=== PATIENT | female | born 1975 | race Caucasian/White ===

== ENCOUNTER 2020-09-26 13:48 | Emergency (ER) | payer BC, SELFPAY ==
[2020-09-26 14:04] VITALS: BP 119/73; PULSE 83; RESP 15; TEMP 36.8; O2SAT 98; BMI 22.8
[2020-09-26 14:10] VITALS: BP 119/73; PULSE 83; RESP 15; TEMP 36.8; O2SAT 98; BMI 23.0
--- NOTE | 2020-09-26 14:29 | HMH.EDUTC ---
[facility] [place] Impression: Laceration of right thumb Qualifiers: Encounter type: initial encounter Damage to nail status: with damage Foreign body presence: without foreign body Qualified Code(s): S61.111A - Laceration without foreign body of right thumb with damage to nail, initial encounter Disposition: Home, Self-Care Condition on Discharge: Good Instructions: DI for Laceration Repair -- Simple Additional Instructions: Keep the wound clean and dry. Watch the for signs of infection, such as redness, swelling, drainage, fever. etc. Take tylenol or ibuprofen for pain. Follow up with your regular doctor. GO TO THE ER FOR ANY WORSENING SYMPTOMS OR CONCERNS. Prescriptions: Mupirocin [Bactroban 2% Ointment 22gm tube] 1 applicatio TP TID 7 Days #1 tube Transmission Status: Received by [facility] cephALEXin [Keflex 500mg Cap] 500 mg PO Q6H 10 Days #40 cap Transmission Status: Received by [facility] Referrals: Shahid Rae MD [Primary Care Provider] - Time of Disposition: 14:37 Medical Decision Making - Medical Records Medical records reviewed: No: I reviewed the patient's medical records. - Alfredo Inquiry Pt receiving controlled substance: No Vital Signs: 09/26/20 14:04 09/26/20 14:10 09/26/20 14:40 Temperature 98.3 F 98.3 F 98.3 F Temperature Source Oral Oral Oral Pulse Rate 83 Pulse Rate [Left Brachial] 83 83 Respiratory Rate 15 15 15 Blood Pressure 119/73 Blood Pressure [Left Arm] 119/73 119/73 Blood Pressure Mean [Left Arm] 88 88 Blood Pressure Source Automatic Cuff Blood Pressure Source [Left Arm] Automatic Cuff Blood Pressure Position Sitting Blood Pressure Position [Left Arm] Sitting 02 Sat by Pulse Oximetry 98 98 Oxygen Delivery Method Room Air Room Air Room Air [facility] [place] - General Stated complaint: rt hand lac Ao 09/26/20 Time Seen by Provider: 09/26/20 14:29 Mode of Arrival: Ambulatory Source of Information: Patient Limitations: No Limitations Description of Symptoms (Recalled from Triage Doc. by RN): Reports she was trying to open a package with a knife and it slipped hitting her right thumb/nailbed. No longer bleeding. HEENT Symptoms (Recalled from RN notes): No Resp Symptoms (Recalled from RN notes): No Skin Symptoms (Recalled from RN notes): No MS Symptoms (Recalled from RN notes): No Functional Status (Recalled from RN notes): wnl - History of Present Illness Provider Complaint: She was wrapping presents earlier today when she slipped with a knife and cut her right thumb. She states that the cut goes across her thumb nail. Her tetanus immunization is up to date. - Related Data Previous Rx's Medication Instructions Recorded azithromycin 250 mg tablet 250 mg PO QDAY 5 Days #6 tab 08/20/19 Mupirocin [Bactroban 2% Ointment 1 applicatio TP TID 7 Days #1 tube 09/26/20 22gm tube] cephALEXin [Keflex 500mg Cap] 500 mg PO Q6H 10 Days #40 cap 09/26/20 Allergies Allergy/AdvReac Type Severity Reaction Status Date / Time Penicillins Allergy Verified 08/20/19 10:38 From [facility] Allergy Unknown I-ITCHING Uncoded 10/20/18 11:30 - Worker's Comp Is this a Worker's Comp case?: No [facility] History - Hepatitis A Screen Drug use history?: No High risk sexual behaviors?: No History of sexually transmitted infection?: No Currently employed?: No Childcare worker?: No Do you have indoor plumbing?: Yes Do you have electricity?: Yes Attestation statement:: This patient has been screened for Hepatitis A risk factors. I have reviewed the patient's past medical history: Yes Medical History: Denies:: Diabetes Mellitus Type 1, Diabetes Mellitus Type 2 Laterality Cases: Right: Lumpectomy Other Surgeries: Yes: Cholecystectomy, Hysterectomy-Partial Comment: Breast Implants - Social History Smoking Status: Current every day smoker Tobacco Type: cigarettes # Packs/Day (cigarettes): 1 Alcohol Intake: never Occupat
[2020-09-26 14:40] VITALS: BP 119/73; PULSE 83; RESP 15; TEMP 36.8; O2SAT 98
== END 2020-09-26 14:41 | disposition home or self-care (01) ==
PROVIDERS: Emergency Provider Nurse Practitioner Family; PCP Family Medicine
DX: S61.111A Laceration without foreign body of right thumb with damage to nail, initial encounter (principal); W26.0XXA Contact with knife, initial encounter; Y92.019 Unspecified place in single-family (private) house as the place of occurrence of the external cause; F17.210 Nicotine dependence, cigarettes, uncomplicated; Z88.0 Allergy status to penicillin; Z88.5 Allergy status to narcotic agent
CPT/HCPCS: 99201

== ENCOUNTER → 2021-10-19 16:49 | Outpatient (CLI) | payer BC, SELFPAY | PROVIDERS: Visit Provider Nurse Practitioner | DX: Z20.822 Contact with and (suspected) exposure to COVID-19 (principal) | CPT/HCPCS: C9803; U0003; U0005 ==

== ENCOUNTER → 2022-08-04 07:18 | Outpatient (CLI) | payer BC, SELFPAY ==
[2022-08-04 07:30] LABS: MANUAL DIFFERENTIAL MANUAL DIFFERENTIAL (MANUAL DIFF)
--- NOTE | 2022-08-04 07:41 | XR_ITS ---
FINAL REPORT CLINICAL HISTORY: Unexplained cough FINDINGS: Two views of the chest were obtained. The heart size and pulmonary vascularity are within normal limits. The mediastinum is normal. No acute pulmonary abnormality is identified. There is no pneumothorax. The bony thorax is intact. IMPRESSION: No active cardiopulmonary disease. Reviewed, Interpreted and Dictated by Anthony Gavin III, MD Transcribed by Nilam Salomon Authenticated and [facility]
[2022-08-04 08:14] LABS: Basophils # 0.2 K/mm3 (0-0.2); Basophils % 2.6 % (0.1-2.0); Eosinophils # 0.3 K/mm3 (0.0-0.4); Eosinophils % 3.2 % (0.1-12.0); Hematocrit 48.8 % (37.0-47.0); Hemoglobin 15.8 g/dL (12.2-16.2); Lymphocytes % 38.3 % (10-50); Mean Corpuscular HGB Conc 32.3 g/dL (31.8-35.4); Mean Corpuscular Volume 92.8 fl (81-99); Mean Platelet Volume 8.6 fl (7.4-10.4); Monocytes # 0.3 K/mm3 (0.1-1.0); Monocytes % 4.4 % (1.7-9.3); Neutrophils % 51.5 % (37.0-80.0); Platelet Count 324 K/mm3 (142-424); Red Blood Count 5.26 M/mm3 (4.20-5.40); Red Cell Distribution Width 14.8 % (11.5-17.5); White Blood Count 7.7 K/mm3 (4.8-10.8)
[2022-08-04 08:27] LABS: Chloride 101 mmol/L (98-107); Potassium 4.3 mmoL/L (3.5-5.1); Sodium 137 mmol/L (136-145)
[2022-08-04 08:30] LABS: Alanine Aminotransferase 16 U/L (12-78); Albumin Level 4.2 g/dl (3.5-5.0); Albumin/Globulin Ratio 1.3 (1.1-1.8); Alkaline Phosphatase 126 U/L (38-126); Anion Gap 13.3 mEq/L (5-15); Aspartate Amino Transferase 26 U/L (14-36); Bilirubin,Total 0.4 mg/dl (0.2-1.3); Blood Urea Nitrogen 6 mg/dl (7-17); Carbon Dioxide 27 mmol/L (22.0-30.0); Cholesterol 246 mg/dl (140-200); Estimated Glomerular Filt Rate 77 ml/min (>60); GFR (African American) 93 ML/MIN (>60); Globulin 3.2 g/dL (1.3-3.2); Total Protein,Serum 7.4 g/dl (6.3-8.2); Triglycerides 83 mg/dl (30-150); VLDL Cholesterol 17 mg/dL (0-40)
[2022-08-04 08:31] LABS: Calcium 9.4 mg/dl (8.4-10.2); Chol/HDL Ratio 3.3 (1-3.5); Glucose 91 mg/dl (74-100); HDL Cholesterol 74 mg/dl (40-60)
[2022-08-04 08:42] LABS: Direct LDL Cholesterol 130.63 mg/dL (100-129)
[2022-08-04 09:01] LABS: Thyroid Stimulating Hormone 3.35 uIU/mL (0.465-4.68)
[2022-08-04 09:55] LABS: Lymphocytes % 42 % (10-50); Monocytes % 6 % (2-9); Neutrophils % 52 % (42-76); Platelet Estimate Normal; RBC Morphology Normal; Total Cells Counted 100
[2022-08-05 08:15] LABS: FSH 42.4 mIU/mL (.); LH 28.9 mIU/mL (.)
== END ==
PROVIDERS: PCP Family Medicine; Visit Provider Family Medicine
DX: Z00.01 Encounter for general adult medical examination with abnormal findings (principal); R05.9 Cough, unspecified; F32.A Depression, unspecified
CPT/HCPCS: 36415; 71046; 80053; 80061; 83001; 83002; 84443; 85007; 85014; 85018; 85048; 85049; 87086; 88305; 88312

== ENCOUNTER 2022-08-09 10:01 | Day surgery (SDC) | payer BC, SELFPAY ==
[2022-07-24 14:17] VITALS: BMI 21.0
[2022-08-09 11:04] VITALS: BP 124/79; PULSE 83; RESP 18; TEMP 36.4; O2SAT 99
--- NOTE | 2022-08-09 11:23 | EXP.ANES.CKL ---
[facility] Medical History History of rectal fissure Laceration of right thumb Strep throat Urinary tract infection Surgical History History of hysterectomy Hx of breast implants, bilateral Hx of cholecystectomy Family History Father Heart attack Hypertension Prostate cancer Mother Hypertension Macular degeneration Sister Thyroid disorder Grandmother Ovarian cancer Colon cancer Social History (Updated 08/09/22 @ 11:14 by Faith Francis RN) Smoking Status: Current every day smoker tobacco type: cigarettes packs per day: 1 years smoked: 20 quit status: considering quitting alcohol intake: former substance use type: denies use current occupational status: employed and other details: self employed Travel in the last 8 weeks: Inside the [facility] household members: spouse housing: house marital status: number of children: 0 education level: high school current occupational exposures/hazards: No caffeine: Yes special sandra needs: No agree to transfusion: No do you feel safe at home: Yes victim of physical abuse: No victim of emotional abuse: No victim of sexual abuse: No would you like helpful sources: No [facility] Anesthesia Checklist Patient Identification Patient Identification: Arm Band Structural Data Admitted From: Home Planned Operative Procedure/s: EGD/colonoscopy Consent for Planned Operative Procedure(s) Verified: Yes Verified Documents: Surgical Consent and History and Physical NPO Status Verified Time NPO: 00:00 Additional verifications Anesthesia Reactions: No Airway Assessment C-Spine Mobility Assessed: Yes TMJ Mobility Assessed: Yes Dentition: Good Dentition Neurological Assessment Level of Consciousness: Awake and Alert Anesthesia Plan Anesthesia Risk discussed: Yes Anesthesia Plan: Verified ASA Class: I Anesthesia Type: MAC
[2022-08-09 12:02] VITALS: BP 100/67; PULSE 81; RESP 18; TEMP 36.1; O2SAT 98
--- NOTE | 2022-08-09 12:03 | HMH.SCOPE ---
Procedure: Date: 08/09/22 Patient Date of :: 1975 Procedure Performed:: EGD Indications:: Chronic GERD Performing Provider:: Chay Adam MD Referring Provider:: Jessie Morris Sedation:: See RN records Procedure:: The gastroscope was gently passed through the incisoral orifice into the oral cavity and under direct visualization the esophagus was intubated. The endoscope was passed down the esophagus, through the stomach, and into the duodenum. Color, texture, mucosa, and anatomy of the esophagus, stomach, and duodenum were carefully examined with the scope. Findings:: Oropharynx: normal Esophagus: Tongue of salmon colored mucosa 1 cm in size. Biopsies obtained EG Junction: Irregular z-line measured at 37 cm Cardia: normal Fundus: normal Body: Mild to moderate gastritis. 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
--- NOTE | 2022-08-09 12:06 | HMH.SCOPE ---
Procedure: Date: 08/09/22 Patient Date of :: 1975 Procedure Performed:: Colonoscopy Indications:: Screening colonoscopy Performing Provider:: Chay Adam MD Referring Provider:: Jessie Morris Sedation:: See RN records Procedure:: After placing the patient in the left lateral decubitus position, the colonoscopy was gently inserted into the rectum and under direct visualization advanced to the cecum which was identified by transillumination in the right lower quadrant, identification of the ileocecal valve, appendiceal orifice, and cecal strap. Color, texture, mucosa, and anatomy of the colon were carefully examined with the scope. Findings:: Anal canal: normal Rectum: Internal hemorrhoids Sigmoid colon: normal without polyps or inflammatory changes Descending colon: normal without polyps or inflammatory changes Splenic flexure: normal Transverse colon: normal without polyps or inflammatory changes Hepatic flexure: normal Ascending colon: normal without polyps or inflammatory changes Cecum: normal Terminal ileum: not visualized Impression: Normal appearing colon. Quality of bowel preparation was good. Recommendations:: Repeat colonoscopy for screening in 10 years or sooner if clinically indicated Complications:: none Estimated blood obtained (mL): 0
[2022-08-09 12:12] VITALS: BP 120/84; PULSE 75; RESP 18; O2SAT 100
[2022-08-09 12:22] VITALS: BP 112/79; PULSE 75; RESP 18; O2SAT 100
[2022-08-09 12:53] VITALS: BP 114/84; PULSE 79; RESP 18; O2SAT 98
== END 2022-08-09 12:40 | disposition home or self-care (01) ==
PROVIDERS: PCP Family Medicine; Visit Provider Internal Medicine
PROC: 0DJ08ZZ Inspection of Upper Intestinal Tract, Via Natural or Artificial Opening Endoscopic (ICD-10-PCS; CPT 43235; principal; 2022-08-09 11:30)
DX: Z12.11 Encounter for screening for malignant neoplasm of colon (principal); K21.00 Gastro-esophageal reflux disease with esophagitis, without bleeding; K64.8 Other hemorrhoids; Z72.0 Tobacco use; Z79.899 Other long term (current) drug therapy
CPT/HCPCS: 43239; 45378; 88305; 88312

== ENCOUNTER 2022-09-05 23:38 | Emergency (ER) | payer BC, SELFPAY ==
[2022-09-06 00:09] VITALS: BP 109/67; PULSE 89; RESP 16; TEMP 36.7; O2SAT 99; BMI 21.0
--- NOTE | 2022-09-06 00:26 | CT_ITS ---
PROCEDURE INFORMATION: Exam: CT Abdomen And Pelvis With Contrast Exam date and time: 09/06/2022 12:52 AM Age: 47 years old Clinical indication: Abdominal pain; Localized; Patient HX: Severe left sided abd pain; Additional info: Luq abd pain TECHNIQUE: Imaging protocol: Computed tomography of the abdomen and pelvis with contrast. Radiation optimization: All CT scans at this facility use at least one of these dose optimization techniques: automated exposure control; mA and/or kV adjustment per patient size (includes targeted exams where dose is matched to clinical indication); or iterative reconstruction. Contrast material: ISOVUE; Contrast volume: 75 ml; Contrast route: IV; COMPARISON: RUQ US RUQ-(ABD LTD)1ORGAN/QUAD/FU 09/05/2016 9:05 AM FINDINGS: Lungs: Few calcified pulmonary granulomas. Bibasilar probable atelectasis. Liver: No suspicious mass. Gallbladder and bile ducts: Cholecystectomy. Pancreas: No ductal dilation. No peripancreatic inflammatory changes. Spleen: Unremarkable. Adrenal glands: No mass. Kidneys and ureters: No hydronephrosis. Stomach and bowel: Several scattered relatively small areas of high attenuation material in the colon (including transverse colon and sigmoid), nonspecific, possibly residual oral contrast. Appendix: No evidence of acute appendicitis. Intraperitoneal space: No ascites. Vasculature: atherosclerotic calcifications. Lymph nodes: No enlarged lymph nodes. Urinary bladder: Unremarkable as visualized. Reproductive: The uterus is present. Bones/joints: No suspicious osseous lesion. No acute fracture. Scattered degenerative changes. Soft tissues: No suspicious mass. IMPRESSION: 1. Several scattered relatively small areas of high attenuation material in the colon (including transverse colon and sigmoid), nonspecific, possibly residual oral contrast. However, contrast extravasation due to gastrointestinal hemorrhage may have a similar appearance. Consider further evaluation with nuclear medicine bleeding scan of clinically indicated. 2. No evidence of acute appendicitis.
[2022-09-06 00:33] LABS: Basophils # 0.3 K/mm3 (0-0.2); Basophils % 2.3 % (0.1-2.0); Eosinophils # 0.4 K/mm3 (0.0-0.4); Eosinophils % 3.2 % (0.1-12.0); Hematocrit 49.8 % (37.0-47.0); Hemoglobin 16.3 g/dL (12.2-16.2); Lymphocytes # 3.7 K/mm3 (0.7-4.5); Lymphocytes % 28.6 % (10-50); Mean Corpuscular HGB Conc 32.7 g/dL (31.8-35.4); Mean Corpuscular Volume 91.9 fl (81-99); Mean Platelet Volume 8.9 fl (7.4-10.4); Monocytes # 0.5 K/mm3 (0.1-1.0); Monocytes % 3.6 % (1.7-9.3); Neutrophils # 8.1 K/mm3 (1.8-7.8); Neutrophils % 62.3 % (37.0-80.0); Platelet Count 342 K/mm3 (142-424); Red Blood Count 5.42 M/mm3 (4.20-5.40); Red Cell Distribution Width 14.4 % (11.5-17.5); White Blood Count 13.1 K/mm3 (4.8-10.8)
[2022-09-06 00:37] LABS: Chloride 97 mmol/L (98-107); Potassium 3.8 mmoL/L (3.5-5.1); Sodium 137 mmol/L (136-145)
[2022-09-06 00:39] LABS: Amylase 118 U/L (30-110); Blood Urea Nitrogen 8 mg/dl (7-17)
[2022-09-06 00:40] LABS: Alanine Aminotransferase 24 U/L (12-78); Albumin Level 4.7 g/dl (3.5-5.0); Albumin/Globulin Ratio 1.4 (1.1-1.8); Alkaline Phosphatase 128 U/L (38-126); Anion Gap 20.8 mEq/L (5-15); Aspartate Amino Transferase 37 U/L (14-36); Bilirubin,Total 0.3 mg/dl (0.2-1.3); Calcium 10.1 mg/dl (8.4-10.2); Carbon Dioxide 23 mmol/L (22.0-30.0); Creatinine Clearance Estimated 72 mL/min (50-200); Estimated Glomerular Filt Rate 77 ml/min (>60); GFR (African American) 93 ML/MIN (>60); Globulin 3.4 g/dL (1.3-3.2); Glucose 93 mg/dl (74-100); Lipase 41 U/L (23-300); Total Protein,Serum 8.1 g/dl (6.3-8.2)
--- NOTE | 2022-09-06 01:01 | PC.NURSE ---
Pt gone to RAD
--- NOTE | 2022-09-06 01:30 | PC.NURSE ---
DR Fontaine s/w [facility]
[2022-09-06 01:31] VITALS: BP 103/75; PULSE 81; O2SAT 99
[2022-09-06 01:31] LABS: Microscopic, Urine URINE MICROSCOPIC (MICROSCOPIC)
[2022-09-06 01:32] LABS: Appearance,Urine CLEAR (Clear); Bilirubin,Urine Negative (Negative); Blood, Urine Negative (Negative); Color,Urine YELLOW (Yellow); Glucose,Urine (UA) Negative (Negative); Ketones,Urine Negative (Negative); Leukocyte Esterase,Urine Negative (Negative); Nitrate,Urine Negative (Negative); PH,Urine 6.5 (5.0-8.5); Protein,Urine Negative (Negative); Specific Gravity, Urine <= 1.005 (1.005-1.030); Urobilinogen,Urine 0.2 EU/dl (0.2)
--- NOTE | 2022-09-06 01:36 | PC.NURSE ---
Dr. Fontaine at
--- NOTE | 2022-09-06 01:39 | HMH.EDABDPAI ---
Discharge Plan Disposition Patient Disposition: Home, Self-Care Chief Complaint: Abdominal Pain Prescriptions Prescriptions: No Action bupropion HCl [Wellbutrin XL] 300 mg tablet extended release 24 hr 300 mg PO DAILY Qty: 30 1RF pantoprazole 40 mg tablet,delayed release (DR/EC) 40 mg PO DAILY Qty: 30 2RF famotidine 40 mg tablet 40 mg PO DAILY Referrals Follow up/Referrals: Jessie Morris DO [Primary Care Provider] - See instructions Clinical Impressions Clinical Impression: Abdominal pain Instructions Patient Instructions: DI for Acute Abdominal Pain, Acute Abdominal Pain Discharge ED Provider: Tenzin Fontaine Abdominal Pain HPI General Chief Complaint: Abdominal Pain Stated Complaint: Left side abdominal pain Time Seen by Provider: 09/06/22 01:39 Mode of Arrival: Ambulatory Source of Information: Patient and Medical Record Limitations: Altered Mental Status Description of Symptoms (Recalled from ER Triage Doc. by RN): Pt reports walking throught the house aprox. an hour prior to arrival when she had a sudden onset of LUQ abdominal pain that she states brought me to my knees. She endorses associated nausea and cold sweats . She denies fever, vomiting, changes in bowel or bladder. She says pain is sharp and constant but less intense when first started. She says pain is slightly alleviated by putting pressure on LUQ. History of Present Illness HPI narrative: acute upper abd pain tonight with sweating with no predromal sx - no blood in stool - had colonoscopy about 10 days ago MD complaint: abdominal pain Onset (ago): hour(s) Consistency: intermittent Location: LUQ Severity: moderate Quality: sharp Radiation: LUQ Related Data Home Medications Medication Instructions Recorded Confirmed famotidine 40 mg tablet 40 mg PO DAILY GERD 07/24/22 07/24/22 Previous Rx's Medication Instructions Recorded bupropion HCl 300 mg 24 hr tablet, 300 mg PO DAILY #30 tabs 08/16/22 extended release (Wellbutrin XL) pantoprazole 40 mg tablet,delayed 40 mg PO DAILY #30 tabs 09/04/22 release Allergies Allergy/AdvReac Type Severity Reaction Status Date / Time Penicillins AdvReac Verified 08/16/22 10:34 From [facility] Allergy Unknown I-ITCHING Uncoded 08/16/22 10:34 PFSH [facility] Medical History History of rectal fissure Laceration of right thumb Strep throat Urinary tract infection Surgical History History of hysterectomy has one ovary Due to benign reason Hx of breast implants, bilateral Hx of cholecystectomy Family History Father Heart attack Hypertension Prostate cancer Mother Hypertension Macular degeneration Sister Thyroid disorder Bradley's Grandmother Ovarian cancer Colon cancer Social History Smoking Status: Current every day smoker tobacco type: cigarettes packs per day: 1 years smoked: 20 quit status: considering quitting alcohol intake: former substance use type: denies use current occupational status: employed and other details: self employed Travel in the last 8 weeks: Inside the [place] household members: spouse housing: house marital status: number of children: 0 education level: high school current occupational exposures/hazards: No caffeine: Yes special sandra needs: No agree to transfusion: No do you feel safe at home: Yes victim of physical abuse: No victim of emotional abuse: No victim of sexual abuse: No would you like helpful sources: No ROS Obtained: Yes All systems reviewed & no additional complaints except as documented Physical Exam General General appearance: alert Head Head exam: normocephalic Eye Eye exam: Present PERRL and EOMI ENT ENT exam:
[2022-09-06 01:44] LABS: Bacteria,Urine Trace /lpf; WBC,Urine Occasional #/hpf (0-3)
[2022-09-06 02:00] VITALS: BP 113/78; PULSE 75; O2SAT 99
[2022-09-06 02:26] VITALS: BP 115/80; PULSE 78; RESP 18; TEMP 36.6; O2SAT 99
== END 2022-09-06 02:34 | disposition home or self-care (01) ==
PROVIDERS: Emergency Provider Emergency Medicine; PCP Family Medicine
DX: R10.32 Left lower quadrant pain (principal); R61 Generalized hyperhidrosis; R11.0 Nausea; F17.210 Nicotine dependence, cigarettes, uncomplicated; Z88.0 Allergy status to penicillin; Z88.5 Allergy status to narcotic agent; Z88.6 Allergy status to analgesic agent; Z82.49 Family history of ischemic heart disease and other diseases of the circulatory system; Z82.1 Family history of blindness and visual loss; Z80.42 Family history of malignant neoplasm of prostate; Z80.41 Family history of malignant neoplasm of ovary; Z80.0 Family history of malignant neoplasm of digestive organs
CPT/HCPCS: 74177; 80053; 81001; 82150; 83690; 85025; 96361; 96374; 96375; 99285; J2405; Q9967

== ENCOUNTER → 2023-08-01 09:24 | Outpatient (CLI) | payer BC, SELFPAY | PROVIDERS: PCP Nurse Practitioner Family; Visit Provider Nurse Practitioner Family | DX: R30.0 Dysuria (principal); B96.29 Other Escherichia coli [E. coli] as the cause of diseases classified elsewhere | CPT/HCPCS: 87086 ==

== ENCOUNTER 2023-10-09 10:40 | Outpatient (CLI) | payer BC, SELFPAY ==
[2023-10-09 17:59] LABS: Coronavirus 19, PCR Not Detected (NotDetected); Influenza A, PCR Not Detected (NotDetected); Influenza B, PCR Not Detected (NotDetected)
== END 2023-10-09 23:59 ==
LOC: LAB.DROPOF 10-10 10:40
PROVIDERS: PCP Student in an Organized Health Care Education/Training Program; Visit Provider Student in an Organized Health Care Education/Training Program
DX: R05.9 Cough, unspecified (principal)
CPT/HCPCS: 87636

== ENCOUNTER 2024-02-01 15:00 | Outpatient (CLI) | payer BC, SELFPAY ==
[2024-02-01 15:43] LABS: Erythrocyte Sedimentation Rate 5 mm/hr (0-20)
[2024-02-01 15:51] LABS: Alanine Aminotransferase 13 U/L (12-78); Albumin Level 3.9 g/dl (3.5-5.0); Albumin/Globulin Ratio 1.4 (1.1-1.8); Alkaline Phosphatase 111 U/L (38-126); Anion Gap 8.3 mEq/L (5-15); Aspartate Amino Transferase 23 U/L (14-36); Bilirubin,Total 0.5 mg/dl (0.2-1.3); Blood Urea Nitrogen 14 mg/dl (7-17); Calcium 9.2 mg/dl (8.4-10.2); Carbon Dioxide 25 mmol/L (22.0-30.0); Chloride 110 mmol/L (98-107); Estimated Glomerular Filt Rate 90 ml/min (>60); GFR (African American) 109 ML/MIN (>60); Globulin 2.7 g/dL (1.3-3.2); Glucose 73 mg/dl (74-100); Potassium 4.3 mmoL/L (3.5-5.1); Sodium 139 mmol/L (136-145); Total Protein,Serum 6.6 g/dl (6.3-8.2); Uric Acid 3.7 mg/dl (2.5-6.2)
[2024-02-01 16:06] LABS: T4 (Thyroxine) 6.3 ug/dl (5.53-11.0)
[2024-02-01 16:19] LABS: Thyroid Stimulating Hormone 4.07 uIU/mL (0.465-4.68)
[2024-02-01 16:39] LABS: Vitamin B12 611 pg/mL (239-931)
[2024-02-01 17:42] LABS: Ferritin 21.1 ng/ml (6.24-137)
[2024-02-02 08:23] LABS: Thyroid Peroxidase Antibodies 75 IU/mL (0-34); Triiodothyronine (T3) Free 2.4 pg/mL (2.0-4.4)
[2024-02-02 10:03] LABS: RA Latex Turbid. <10.0 IU/mL (<14.0)
[2024-02-04 16:16] LABS: Antinuclear Antibodies, IFA Negative (.)
[2024-02-05 09:12] LABS: Thyroglobulin Level <1.0 IU/mL (0.0-0.9)
[2024-02-06 01:14] LABS: Magnesium,RBC 5.5 mg/dL (3.7-7.0)
[2024-02-08 09:02] LABS: Antinuclear Antibodies (ANA) Negative
== END 2024-02-01 23:59 | disposition home or self-care (01) ==
LOC: LAB.DROPOF 15:07
PROVIDERS: PCP Nurse Practitioner Family; Visit Provider Nurse Practitioner Family
DX: E04.1 Nontoxic single thyroid nodule (principal); M25.50 Pain in unspecified joint; D64.9 Anemia, unspecified; R20.2 Paresthesia of skin; R63.4 Abnormal weight loss; Z68.1 Body mass index [BMI] 19.9 or less, adult
CPT/HCPCS: 36415; 80053; 82533; 82607; 82728; 83735; 84436; 84443; 84481; 84550; 85651; 86038; 86225; 86235; 86376; 86431; 86800

== ENCOUNTER 2024-02-06 12:34 | Outpatient (CLI) | payer BC, SELFPAY ==
--- NOTE | 2024-02-06 12:34 | US_ITS ---
FINAL REPORT TECHNIQUE: Real-time grayscale and color ultrasound of the thyroid was performed. CLINICAL HISTORY: thyroid nodule COMPARISON: None FINDINGS: The thyroid is diffusely heterogeneous which may be seen with goiter or thyroiditis. There are no suspicious nodules. There is a hypoechoic nodule posterior to the left thyroid gland measuring 5 mm which may represent parathyroid gland. IMPRESSION: Heterogeneous thyroid may represent chronic thyroiditis without suspicious thyroid lesions. Possible parathyroid gland enlargement posterior to the left thyroid. Reviewed, Interpreted and Dictated by Olaf Howard MD Transcribed by Alida Stover Authenticated and [facility]
== END 2024-02-06 23:59 | disposition home or self-care (01) ==
LOC: RAD 12:34
PROVIDERS: PCP Nurse Practitioner Family; Visit Provider Nurse Practitioner Family
DX: E04.1 Nontoxic single thyroid nodule (principal)
CPT/HCPCS: 76536

== ENCOUNTER 2024-02-13 13:01 | Outpatient (CLI) | payer BC, SELFPAY ==
[2024-02-13 13:47] LABS: Chol/HDL Ratio 2.6 (1-3.5); Cholesterol 205 mg/dl (140-200); HDL Cholesterol 78 mg/dl (40-60); Triglycerides 75 mg/dl (30-150); VLDL Cholesterol 15 mg/dL (0-40)
[2024-02-13 13:59] LABS: Direct LDL Cholesterol 109.48 mg/dL (100-129); Intact Parathyroid Hormone 52.8 pg/mL (7.5-53.5)
[2024-02-13 14:10] LABS: 25-OH Vitamin D, Total 22.3 ng/mL (30-100)
== END 2024-02-13 23:59 | disposition home or self-care (01) ==
LOC: LAB.DROPOF 13:01
PROVIDERS: PCP Nurse Practitioner Family; Visit Provider Nurse Practitioner Family
DX: E21.5 Disorder of parathyroid gland, unspecified (principal); E55.9 Vitamin D deficiency, unspecified; Z13.220 Encounter for screening for lipoid disorders; Z68.1 Body mass index [BMI] 19.9 or less, adult
CPT/HCPCS: 80061; 82306; 82330; 83970

== ENCOUNTER 2024-02-22 07:32 | Outpatient (CLI) | payer BC, SELFPAY ==
--- NOTE | 2024-02-22 07:32 | MR_ITS ---
FINAL REPORT CLINICAL HISTORY: generalized tingling. HEADACHE FINDINGS: Multiplanar MR imaging of the brain was performed without contrast. There is no evidence of intracranial hemorrhage or mass. The ventricular size is normal. There is no evidence of shift of the midline structures. No abnormal extra-axial fluid collection is identified. The posterior fossa and brainstem have an unremarkable appearance. No area of abnormal restricted diffusion is identified. Normal major vessel vascular flow voids are seen. There is mucosal thickening in multiple sinuses. IMPRESSION: Unremarkable brain with no acute intracranial abnormality. Reviewed, Interpreted and Dictated by Anthony Gavin III, MD Transcribed by Danita Charlton Authenticated and [facility]
== END 2024-02-22 23:59 | disposition home or self-care (01) ==
LOC: RAD 07:32
PROVIDERS: PCP Nurse Practitioner Family; Visit Provider Nurse Practitioner Family
DX: R20.2 Paresthesia of skin (principal)
CPT/HCPCS: 70551

== ENCOUNTER 2024-03-05 08:11 | Outpatient (CLI) | payer BC, SELFPAY ==
--- NOTE | 2024-03-05 08:12 | NM_ITS ---
FINAL REPORT CLINICAL HISTORY: enlarged parathyroid per thyroid US COMPARISON: None FINDINGS: PARATHYROID SCAN The patient received a dose of 21.5 millicuries of technetium 99m sestamibi. Images over the neck were obtained initially and after a two-hour delay. No focal persistent activity is identified to suggest a parathyroid adenoma. IMPRESSION: No evidence of a parathyroid adenoma. Reviewed, Interpreted and Dictated by Román Carpenter MD Transcribed by Alida Stover Authenticated and . [facility]
== END 2024-03-05 23:59 | disposition home or self-care (01) ==
LOC: RAD 08:12
PROVIDERS: PCP Nurse Practitioner Family; Visit Provider Nurse Practitioner Family
DX: E21.5 Disorder of parathyroid gland, unspecified (principal)
CPT/HCPCS: 78070

== ENCOUNTER 2024-10-21 09:23 | Outpatient (CLI) | payer BC, SELFPAY ==
[2024-10-21 09:02] LABS: Microscopic, Urine URINE MICROSCOPIC (MICROSCOPIC)
[2024-10-21 09:13] LABS: Basophils # 0.1 K/mm3 (0-0.2); Basophils % 1.8 % (0.1-2.0); Eosinophils # 0.8 K/mm3 (0.0-0.4); Eosinophils % 11.3 % (0.1-12.0); Hematocrit 40.1 % (37.0-47.0); Hemoglobin 13.8 g/dL (12.2-16.2); Lymphocytes # 2.8 K/mm3 (0.7-4.5); Lymphocytes % 38.8 % (10-50); Mean Corpuscular HGB Conc 34.4 g/dL (31.8-35.4); Mean Corpuscular Volume 87.2 fl (81-99); Mean Platelet Volume 11.2 fl (7.4-10.4); Monocytes # 0.4 K/mm3 (0.1-1.0); Platelet Count 233 K/mm3 (142-424); White Blood Count 7.1 K/mm3 (4.8-10.8)
[2024-10-21 09:49] LABS: Hemoglobin A1C 5.3 % (4.0-6.0)
[2024-10-21 10:06] LABS: Erythrocyte Sedimentation Rate 4 mm/hr (0-20)
[2024-10-21 10:26] LABS: Appearance,Urine CLEAR (Clear); Bilirubin,Urine Negative (Negative); Blood, Urine Negative (Negative); Color,Urine YELLOW (Yellow); Glucose,Urine (UA) Negative (Negative); Ketones,Urine Negative (Negative); Leukocyte Esterase,Urine Negative (Negative); Nitrate,Urine Negative (Negative); Protein,Urine Negative (Negative); Specific Gravity, Urine 1.015 (1.005-1.030); Urobilinogen,Urine 0.2 EU/dl (0.2)
[2024-10-21 10:37] LABS: HIV Combo NEGATIVE (Negative)
[2024-10-21 10:39] LABS: Alanine Aminotransferase 23 U/L (12-78); Albumin Level 4.4 g/dl (3.5-5.0); Albumin/Globulin Ratio 1.8 (1.1-1.8); Alkaline Phosphatase 93 U/L (38-126); Aspartate Amino Transferase 36 U/L (14-36); Bilirubin,Total 0.4 mg/dl (0.2-1.3); Blood Urea Nitrogen 7 mg/dl (7-17); Calcium 9.8 mg/dl (8.4-10.2); Carbon Dioxide 33 mmol/L (22.0-30.0); Chloride 102 mmol/L (98-107); Cholesterol 213 mg/dl (140-200); Estimated Glomerular Filt Rate 59 ml/min (>60); GFR (African American) 72 ML/MIN (>60); Globulin 2.5 g/dL (1.3-3.2); Glucose 93 mg/dl (74-100); Phosphorous 3.9 mg/dl (2.5-4.5); Sodium 139 mmol/L (136-145); Total Protein,Serum 6.9 g/dl (6.3-8.2); Triglycerides 59 mg/dl (30-150); VLDL Cholesterol 12 mg/dL (0-40)
[2024-10-21 10:41] LABS: Magnesium 2.2 mg/dl (1.6-2.3)
[2024-10-21 10:45] LABS: Hepatitis C Ab Qual. W/ RFX NEGATIVE (Negative)
[2024-10-21 10:50] LABS: Direct LDL Cholesterol 105.53 mg/dL (100-129)
[2024-10-21 10:55] LABS: C-Reactive Protein 0.5 mg/L (0-4)
[2024-10-21 11:08] LABS: Thyroid Stimulating Hormone 5.73 uIU/mL (0.465-4.68)
[2024-10-21 11:27] LABS: Vitamin B12 859 pg/mL (239-931)
[2024-10-21 11:28] LABS: Bacteria,Urine 2+ /lpf; RBC,Urine Occasional #/hpf (0-3); WBC,Urine Occasional #/hpf (0-3)
[2024-10-21 14:06] LABS: Anion Gap 8.3 mEq/L (5-15); Potassium 4.3 mmoL/L (3.5-5.1)
[2024-10-21 14:09] LABS: Chol/HDL Ratio 2.5 (1-3.5); HDL Cholesterol 86 mg/dl (40-60)
[2024-10-21 14:18] LABS: Total Iron Binding Capacity 287 ug/dL (265-497)
[2024-10-21 16:01] LABS: 25-OH Vitamin D, Total 27.9 ng/mL (30-100)
[2024-10-21 16:39] LABS: Ferritin 28.6 ng/ml (6.24-137)
[2024-10-21 17:17] LABS: Iron 113 ug/dL (37-170)
== END 2024-10-21 23:59 | disposition home or self-care (01) ==
LOC: LAB.DROPOF 09:24
PROVIDERS: PCP Nurse Practitioner Family; Visit Provider Nurse Practitioner Family
DX: K21.9 Gastro-esophageal reflux disease without esophagitis (principal); E06.3 Autoimmune thyroiditis; E55.9 Vitamin D deficiency, unspecified; E53.8 Deficiency of other specified B group vitamins; R10.9 Unspecified abdominal pain; Z11.4 Encounter for screening for human immunodeficiency virus [HIV]; Z11.59 Encounter for screening for other viral diseases; Z13.1 Encounter for screening for diabetes mellitus; D64.9 Anemia, unspecified; E78.5 Hyperlipidemia, unspecified
CPT/HCPCS: 80053; 80061; 81001; 82306; 82607; 82728; 83036; 83540; 83550; 83735; 84100; 84439; 84443; 85025; 85651; 86140; 86803; 87086; 87389

== ENCOUNTER 2025-02-16 15:36 | Outpatient (CLI) | payer BC, SELFPAY ==
--- NOTE | 2025-02-16 15:38 | XR_ITS ---
FINAL REPORT CLINICAL HISTORY: RLQ discomfort for 2-3 months COMPARISON: None FINDINGS: A single view of the abdomen was obtained. There is a nonobstructive bowel gas pattern. There are no abnormally dilated loops of small bowel. There are no abnormal calcifications. Surgical clips are noted in the right upper quadrant. IMPRESSION: Nonobstructive bowel gas pattern. Reviewed, Interpreted and Dictated by Román Carpenter MD Transcribed by Mirta Lomax Authenticated and [facility]
== END 2025-02-16 23:59 | disposition home or self-care (01) ==
LOC: RAD 15:37
PROVIDERS: PCP Nurse Practitioner Family; Visit Provider Nurse Practitioner Family
DX: R14.0 Abdominal distension (gaseous) (principal)
CPT/HCPCS: 74018

== ENCOUNTER 2025-06-08 13:30 | Outpatient (CLI) | payer BC, SELFPAY ==
[2025-06-08 21:15] LABS: Coronavirus 19, PCR Not Detected (NotDetected); Influenza A, PCR Not Detected (NotDetected); Influenza B, PCR Not Detected (NotDetected)
--- OUTSIDE RECORDS SUMMARY | 2025-06-09 11:14 | XMS_ITS | Clinical Summary ---
Author Organization [facility] Address [address] [place] [address] Care Team Providers Care Dynamic Balancer Set Up Worker Name Role Phone Shahid Rae MD Primary Care Provider + Allergies No known active allergies Medications ondansetron (ZOFRAN) 4 MG tablet Take 1 tablet by mouth Every 6 (Six) Hours As Needed for nausea or vomiting. 15 tablet 09/07/2016 Active Family History Medical History Relation Name Comments Ovarian cancer Maternal Grandmother Breast cancer Paternal Aunt Relation Name Status Comments Maternal Grandmother Paternal Aunt Social History Tobacco Use Types Packs/Day Years Used Date Smoking Tobacco: Every Day Cigarettes Alcohol Use Standard Drinks/Week Comments No 0 (1 standard drink = 0.6 oz pur e alcohol) Abuse Screen Answer Date Recorded Unsafe at Home or Work/School Not on file Feels Threatened by Someone? Not on file 06/2023 Does Anyone Keep You from Co ntacting Others or Doint Things Outside the Home? Not on file 07/16/2023 Physical Sign of Abuse Present Not on file 1 Housing Stability Answer Date Recorded Current Living Arrangements Not on file 06/2023 Potentially Unsafe Housing Conditions Not on jamal e 07/16/2023 Family and Community Support Answer Gorge e Recorded Help with Day-to-Day Activities Not on file 07/16/2023 Lonely or Isolated Not on file 07/16/2023 Employment Answer Date Recorded Do you want help finding or keeping work or a sangeetha b? Not on file 07/16/2023 Disabilities Answer Date Recorded Concentrating, Remembering, or Making Decisions Difficulty Not on file 07/16/2023 Doing Errands Independently Difficulty Not on fi le 07/16/2023 Education Answer Date Recorded Help with school or training? Not on file Preferred Language Not on file 07/16/2023 Comments No Sex and Gender Information Value Date Recorded Sex Assigned at Not on file Legal Sex Female 12:08 PM EDT Gender Identity Not on file Sexual Orientation Not on file Last Filed Vital Signs Vital Sign Reading Time Taken Comments Blood Pressure 97/63 09/07/2016 3:18 PM EST Pulse 69 09/07/2016 1:30 PM EST Temperature 36.8 C (98.2 F) 09/07/2016 12:38 PM EST Respiratory Rate 14 09/07/2016 1:30 PM EST Oxygen Saturation 97% 09/07/2016 3:18 PM EST Inhaled Oxygen Concentration - - Weight 52.2 kg (115 lb) 09/07/2016 12:38 PM EST Height 157.5 cm (5' 2 ) 09/07/2016 12:38 PM EST Body Mass Index 21.03 09/07/2016 12:38 PM EST Plan of Treatment Health Maintenance Due Date Last Done Comments ANNUAL PHYSICAL 1975 Annual Gynecologic Pelvic and Breast Exam 1975 HEPATITIS C SCREENING 1975 COLOGUARD 2021 COLON CANCER SCREENING 5 YEAR SIGMOIDOSCOPY 2021 COLONOSCOPY 2021 [address]AL CANCER SCREENING 2021 CT COLONOGRAPHY 2021 FECAL OCCULT BLOOD TEST 2021 FIT Testing (1 year) 2021 MAMMOGRAM 04/14/2022 04/14/2020, 01/06, 07/17/2018, Additional history exists COVID-19 Vaccine ( - 2023- season) 2024 INFLUENZA VACCINE 07/08/2025 TDAP/TD VACCINES (2 - Td or Tdap) 10/03/2028 10/03/2018 Pneumococcal Vaccine 0-49 Aged Out No longer eligible based on patient's age to complete this topic Procedures Procedure Name Priority Date/Time Associated Diagnosis Comments MAMMO SCREENING DIGITAL TOMOSYNTHESIS BILATERAL W CAD Routine 04/14/2020 10:34 AM EDT Visit for screening mammogram from Last 3 Months or Most Recently Relevant to Health Maintenance Results * Mammo Screening Digital Tomosynthesis Bilateral With CAD (04/14/2020 10:34 AM EDT) Anatomical Region Laterality Modality Breast N/A Mammography 04/19/2020 6:39 PM EDT Impressions 04/19/2020 6:44 PM EDT No findings suspicious for malignancy. ACR BI-RADS CATEGORY: 1, NEGATIVE RECOMMENDATION: Yearly mammogram, yearly clinical breast exam, and encourage self breast awareness. CAD was used. The standard false negative rate of mammography is between 10% and 25%. Complex patterns or increased breast density will markedly elevate the false negative rate of mammography. A letter, in lay terminology, with the results of this exam will be mailed to the patient. If there is a palpable area of concern, biopsy should be considered regardless of imaging findings. This report was finalized on 04/19/2020 6:44 PM by Delia Jones MD. Narrative 04/19/2020 6:44 PM EDT ROUTINE DIGITAL SCREENING MAMMOGRAM WITH TOMOSYNTHESIS HISTORY: Routine screening. IMAGE COMPARISON: Extending to 2018. TECHNIQUE: Low dose full field digital breast tomosynthesis imaging was performed with 2D and 3D acquisitions consisting of bilateral CC and MLO views. Implant displaced views. FINDINGS: There are scattered fibroglandular densities. There are stable prepectoral saline implants in place. The fibroglandular pattern appears stable. There is no mass, worrisome microcalcifications, or architectural distortion to suggest development of malignancy. Shahid Rae MD IMG MAMMOGRAPHY ORDERABL ES Final Result from Last 3 Months or Most Recently Relevant to Health Maintenance [place] [address] [address] [place] [address] PPO Care Teams Dynamic Balancer Set Up Worker Relationship Specialty Start Date End Date Shahid Rae MD PCP - General Family Medicine 09/07/16
== END 2025-06-08 23:59 ==
LOC: LAB.DROPOF 06-09 10:40
PROVIDERS: PCP Student in an Organized Health Care Education/Training Program; Visit Provider Student in an Organized Health Care Education/Training Program
DX: J06.9 Acute upper respiratory infection, unspecified (principal)
CPT/HCPCS: 87631

== ENCOUNTER 2025-07-30 07:23 | Outpatient (CLI) | payer BC, SELFPAY ==
--- OUTSIDE RECORDS SUMMARY | 2025-07-30 07:26 | XMS_ITS | Clinical Summary ---
Author Organization [facility] Address [address] [place] [address] Care Team Providers Care Appliance Mechanic Name Role Phone Shahid Rae MD Primary [...] 04/14/2022 04/14/2020, 01/06, 07/17/2018, Additional history exists INFLUENZA VACCINE 05/08/2025 TDAP/TD VACCINES (2 - Td or Tdap) [...] Most Recently Relevant to Health Maintenance Insurance Care Teams Appliance Mechanic Relationship Specialty Start Date End Date Shahid Rae MD PCP - General Family Medicine 09/07/16
--- NOTE | 2025-07-30 07:30 | CT_ITS ---
FINAL REPORT TECHNIQUE: Thin section axial CT images of the facial bones and sinuses were obtained without contrast. Coronal and sagittal reformatted images were also obtained. This study was performed with techniques to keep radiation doses as low as reasonably achievable, (ALARA). Individualized dose reduction techniques using automated exposure control or adjustment of mA and/or kV according to the patient's size were employed. CLINICAL HISTORY: eval and treat for chronis sinusitis COMPARISON: None FINDINGS: There is no evidence of mucosal thickening. No fluid levels are identified. The ostiomeatal units have an unremarkable appearance. The anterior nasal septum is deviated 4 mm to the right, while the posterior nasal septum is deviated to 3 mm to the left. There is also a septal spur projecting into the left nasal passage which contributes to narrowing. No fracture or acute bony abnormality is identified. IMPRESSION: 1. No acute sinusitis. 2. S-shaped nasal septal deviation as described. Reviewed, Interpreted and Dictated by Olaf Howard MD Transcribed by Gillian Simon Authenticated and [facility]
== END 2025-07-30 23:59 | disposition home or self-care (01) ==
LOC: RAD 07:24
PROVIDERS: PCP Nurse Practitioner Family; Visit Provider Nurse Practitioner
DX: J34.2 Deviated nasal septum (principal); J32.9 Chronic sinusitis, unspecified
CPT/HCPCS: 70486

== ENCOUNTER 2025-08-17 08:22 | Day surgery (SDC) | payer OTHER, SELFPAY ==
[2025-08-12 09:52] VITALS: BMI 21.0
--- NOTE | 2025-08-13 07:09 | P.HP_ITS ---
History of Present Illness *Admission Date: 08/17/25 *History of present illness: Mrs. Caro is a 50-year-old female who is here for surveillance EGD secondary to a personal history of short segment Vyas's esophagus. The patient's last EGD was in August 2022 (Chay dAam MD) and the patient did have a tongue of salmon-colored mucosa (1 cm in size) and biopsies showed extensive intestinal metaplasia consistent with short segment Vyas's esophagus. There was no dysplasia. The patient has been on pantoprazole and famotidine with resolution of her GERD symptoms. She does have some chronic constipation.. The examination is deemed medically necessary for diagnostic EGD. The patient has been seen, interviewed and examined prior to the procedure by both myself and the anesthesia provider. [facility] Disclaimer: The information contained in this section may have been updated after the patient was seen, as this information can be updated by other users. Medical History Nasal septal spur Post-nasal drip Chronic sinusitis Screening for HIV (human immunodeficiency virus) Encounter for hepatitis C screening test for low risk patient Tingling of skin Flank pain Lumbago Headache Numbness and tingling of right face Blurry vision, right eye Ptosis of eyelid, right Upper respiratory infection History of rectal fissure Urinary tract infection Laceration of right thumb Strep throat Surgical History (Updated 08/17/25 @ 09:08 by Kirstie Whitaker RN) Hx of colonoscopy History of esophagogastroduodenoscopy (EGD) Hx of cholecystectomy History of hysterectomy Hx of breast implants, bilateral Family History Father Heart attack Hypertension Prostate cancer Mother Hypertension Macular degeneration Sister Thyroid disorder Bradley's Grandmother Ovarian cancer Colon cancer Social History Smoking Status: Former smoker years smoked: 20 smoking status stop date: a year and half ago quit status: considering quitting alcohol intake: former substance use type: denies use current occupational status: employed and other details: self employed Travel in the last 8 weeks?: Inside the [place] household members: spouse housing: house marital status: number of children: 0 education level: high school current occupational exposures/hazards: No caffeine: Yes special sandra needs: No agree to transfusion: No do you feel safe at home: Yes victim of physical abuse: No victim of emotional abuse: No victim of sexual abuse: No would you like helpful sources: No Have you lived/traveled outside [place] in past 30 days?: No Contact w/someone who lives/traveled outside US past 30 days?: No Exposure to someone with infectious disease in past 14 days?: No Do you have a fever (greater than 100.4 F or 38 C)?: No Have you tested positive for COVID-19?: No Exposed to someone with COVID-19 in past 14 days?: No Do you have a sore throat?: No Do you have a cough?: No Do you have any weakness?: No Do you have any diarrhea?: No Are you experiencing any unusual bleeding?: No Do you have any muscle aches/pain?: No Do you have any abdominal pain?: No Are you experiencing loss of taste or smell?: No Other Medical History Have you received the Flu Vaccine for this season: No Have you received the Pneumonia Vaccine: No Review of Systems Review of Systems Review of systems (narrative): Negative *Cardiovascular Comments: Negative *Gastrointestinal Comments: Negative *Genitourinary Comments: Negative *Musculoskeletal Comments: Negative *Neurologic Comments: Negative Meds Home Medications and Allergies Home Medications ?Medication ?Instructions ?Recorded ?Confirmed ?Type cholecalciferol (vitamin D3) 50 50 mcg PO DAILY #30 ca ps 10/22/24 08/17/25 Rx mcg (2,000 unit) capsule montelukast 10 mg tablet See Rx Instructions .Route 0 04/13/25 08/17/25 Rx .COMPLEX #30 tabs fluticasone propionate 50 2 spray intranasal DAILY #16 grams 04/21/25 08/17/25 Rx mcg/actuation nasal spray,suspension (Flonase Allergy Relief) famotidine 40 mg tablet See Rx Instructions .Route 0 04/28/25 08/17/25 Rx .COMPLEX #90 tabs pantoprazole 40 mg tablet,delayed See Rx Instructions .Route 04/28/25 08/17/25 Rx release .COMPLEX #90 tabs New Prescriptions to Start Prescriptions: Allergies Allergy/AdvReac Type Severity Reaction Status Date / Time acetaminophen (From Lortab) Allergy Intermediate Rash Verified 08/17/25 09:09 hydrocodone (From Lortab) Allergy Intermediate Rash Verified 08/17/25 09:09 Penicillins AdvReac Mild yeast Verified 08/17/25 09:09 infection Exam Data for Last 24 hours I & O for Last 24 hours: Intake & Output 08/10/25 08/11/25 08/12/25 08/13/25 23:59 23:59 23:59 23:59 Weight 115 lb *Routine HEENT Exam Head: Present normocephalic Eye: Present EOMI and PERRL ENT: Present mucous membranes moist *Routine Neck Exam Neck: Present supple *Routine Respiratory Exam Respiratory: Present CTA bilaterally *Routine Cardiovascular Exam Cardiovascular: Present RRR *Routine Abdominal Exam Abdominal: Present soft and normoactive bowel sounds; Absent tenderness *Routine Rectal Exam Rectal:: deferred *Routine Genitalia Exam Genitalia:: deferred *Routine Extremities Exam Extremities: Absent cyanosis, clubbing or edema *Routine Skin Exam Skin: Present warm; Absent rash *Routine Neurological Exam Neurological: Present alert and oriented X3 Assessment and Plan *Assessment and plan (1) History of Vyas's esophagus: Status: Acute Category: Medical Code(s): Z87.19 - Personal history of other diseases of the digestive system (2) History of gastroesophageal reflux (GERD): Status: Acute Category: Medical Code(s): Z87.19 - Personal history of other diseases of the digestive system Plan A/P: 1. History of Vyas's esophagus and GERD is the preprocedural diagnosis. The patient will be anesthetized/sedated using MAC sedation. The patient has been seen and examined. Cardiac and lung assessment prior to the examination is stable. Proceed with planned diagnostic EGD.
--- NOTE | 2025-08-17 07:01 | HMH.PROCNOTE ---
[facility] Procedure Note Date: 08/17/25 Time: 09:56 Procedure Note:: Upper Endoscopy Procedure Report: Esophagogastroduodenoscopy with cold biopsies Endoscopost: Manan Acuna II, MD Referring Physician: OBED Ramsay Date of Procedure: August 17, 2025 Equipment: Olympus GIF-1100 standard upper endoscope Sedation: MAC sedation Indications: Mrs. Caro is a 50-year-old female who is here for surveillance EGD secondary to a personal history of short segment Vyas's esophagus. The patient's last EGD was in August 2022 (Chay Adam MD) and the patient did have a tongue of salmon-colored mucosa (1 cm in size) and biopsies showed extensive intestinal metaplasia consistent with short segment Vyas's esophagus. There was no dysplasia. The patient has been on pantoprazole and famotidine with resolution of her GERD symptoms. She does have some chronic constipation.. The examination is deemed medically necessary for diagnostic EGD. Procedure: Prior to the procedure, a history and physical exam was performed, and patient's medications and allergies were reviewed. The risks, benefits and alternatives of the sedation and procedure were discussed with the patient. All questions were answered and informed consent was obtained. The patient was brought to the procedure room. Patient identification and proposed procedure were verified by the physician and the nurse. The patient was placed in a left lateral decubitus position and the scope was passed under direct vision. Throughout the procedure, the patient's blood pressure, pulse, and oxygen saturations were monitored continuously. The upper GI endoscopy was accomplished without difficulty. The patient tolerated the procedure well. Findings: The scope was passed directly into the upper esophagus and advanced to the third portion of the duodenum. The post bulbar duodenum and duodenal bulb were normal with normal mucosa and conniventes. The scope was withdrawn through a normal duodenal bulb and pylorus into the stomach. There was bile reflux with mild linear antral gastropathy. Cold biopsies were taken from the antrum. The body and fundus of the stomach were normal. Upon retroflexion there was a 2 cm hiatal hernia. The scope was then withdrawn into the esophagus. There was a single tongue of salmon-colored mucosa that extended 1 to 2 cm from the GE junction. NBI was utilized and there was no evidence of any dysplasia. Directed biopsies were taken from this tongue of mucosa to rule out intestinal metaplasia. There was no evidence of reflux esophagitis and the remainder of the esophageal mucosa was normal. Impression: 1. Very short segment Vyas's esophagus 2. Nonerosive GERD with small 2 cm hiatal hernia 3. Bile reflux with mild linear antral gastropathy Plan: I will follow-up the biopsies and recommend repeat surveillance upper endoscopy in 5 years. I would continue PPI therapy (i.e. pantoprazole).
[2025-08-17 09:12] VITALS: BP 103/64; PULSE 69; RESP 16; TEMP 36.6; O2SAT 99; BMI 21.0
[2025-08-17] MEDS: LACTATED RINGERS 1000ML 1,000 ML 50 ML IV (09:18)
--- NOTE | 2025-08-17 09:30 | P.PNANES_ITS ---
[facility] Disclaimer: The information contained in this section may have been updated after the patient was seen, as this information can be updated by other users. Medical History Nasal septal spur Post-nasal drip Chronic sinusitis Screening for HIV (human immunodeficiency virus) Encounter for hepatitis C screening test for low risk patient Tingling of skin Flank pain Lumbago Headache Numbness and tingling of right face Blurry vision, right eye Ptosis of eyelid, right Upper respiratory infection History of rectal fissure Urinary tract infection Laceration of right thumb Strep throat Surgical History (Updated 08/17/25 @ 09:08 by Kirstie Whitaker RN) Hx of colonoscopy History of esophagogastroduodenoscopy (EGD) Hx of cholecystectomy History of hysterectomy Hx of breast implants, bilateral Family History Father Heart attack Hypertension Prostate cancer Mother Hypertension Macular degeneration Sister Thyroid disorder Bradley's Grandmother Ovarian cancer Colon cancer Social History Smoking Status: Former smoker years smoked: 20 smoking status stop date: a year and half ago quit status: considering quitting alcohol intake: former substance use type: denies use current occupational status: employed and other details: self employed Travel in the last 8 weeks?: [place] the [place] household members: spouse housing: house marital status: number of children: 0 education level: high school current occupational exposures/hazards: No caffeine: Yes special sandra needs: No agree to transfusion: No do you feel safe at home: Yes victim of physical abuse: No victim of emotional abuse: No victim of sexual abuse: No would you like helpful sources: No Have you lived/traveled outside [place] in past 30 days?: No Contact w/someone who lives/traveled outside [place] past 30 days?: No Exposure to someone with infectious disease in past 14 days?: No Do you have a fever (greater than 100.4 F or 38 C)?: No Have you tested positive for COVID-19?: No Exposed to someone with COVID-19 in past 14 days?: No Do you have a sore throat?: No Do you have a cough?: No Do you have any weakness?: No Do you have any diarrhea?: No Are you experiencing any unusual bleeding?: No Do you have any muscle aches/pain?: No Do you have any abdominal pain?: No Are you experiencing loss of taste or smell?: No [facility] Anesthesia Checklist Patient Identification Patient Identification: Arm Band and Verbal (Name & ) Structural Data Admitted From: Home Planned Operative Procedure/s: EGD Consent for Planned Operative Procedure(s) Verified: Yes Verified Documents: Surgical Consent NPO Status Verified Time NPO: 00:00 Additional verifications Anesthesia Reactions: No Airway Assessment Mallampati Score:: Class II C-Spine Mobility Assessed: Yes TMJ Mobility Assessed: Yes Dentition: Good Dentition Neurological Assessment Level of Consciousness: Awake, Alert and Appropriate Hx Seizures: No Numbness or tingling in extremities: No Anesthesia Plan Anesthesia Risk discussed: Yes Anesthesia Plan: Verified ASA Class: II Anesthesia Type: MAC
[2025-08-17 09:56] VITALS: BP 101/65; PULSE 86; RESP 18; TEMP 36.4; O2SAT 98
[2025-08-17 10:11] VITALS: BP 105/66; PULSE 73; RESP 18; O2SAT 99
[2025-08-17 10:26] VITALS: BP 108/63; PULSE 73; RESP 18; O2SAT 98
== END 2025-08-17 10:33 | disposition home or self-care (01) ==
PROVIDERS: PCP Nurse Practitioner Family; Visit Provider Internal Medicine Gastroenterology
PROC: 0DJ08ZZ Inspection of Upper Intestinal Tract, Via Natural or Artificial Opening Endoscopic (ICD-10-PCS; CPT 43239; principal; 2025-08-17 10:00)
DX: K22.70 Barrett's esophagus without dysplasia (principal); K44.9 Diaphragmatic hernia without obstruction or gangrene; K21.9 Gastro-esophageal reflux disease without esophagitis; K31.89 Other diseases of stomach and duodenum; K59.09 Other constipation; Z87.891 Personal history of nicotine dependence; Z88.0 Allergy status to penicillin; Z88.5 Allergy status to narcotic agent; Z88.6 Allergy status to analgesic agent; Z87.19 Personal history of other diseases of the digestive system
CPT/HCPCS: 43239; J2003; J2704; J7120